=== PATIENT | male | born 1955 | race Caucasian/White ===

== ENCOUNTER 2018-11-18 19:28 | Emergency (ER) | payer BC ==
[2018-11-18 20:14] LABS: #Basophils 0.1 thou/uL (0.0-0.2); #Eosinphils 0.2 thou/uL (0.0-0.7); #Monocytes 0.3 thou/uL (0.11-0.59); #Neutrophils 2.8 thou/uL (1.40-6.50); %Basophils 1.5 % (0.0-1.0); %Eosinophils 2.9 % (0.0-10.0); %Lymphocytes 37.1 % (21.0-51.0); %Monocytes 6.4 % (0.0-10.0); %Neutrophils 52.1 % (42.0-75.0); Hemoglobin 12.5 g/dL (14.0-18.0); Mean Corpuscular HGB CONC 32.2 g/dL (32.0-36.0); Mean Corpuscular Hemoglobin 30.7 pg (27.0-31.0); Mean Corpuscular Volume 95.2 fL (78.0-98.0); Mean Platelet Volume 9.3 fL (7.4-10.4); Platelet Count 126 thou/uL (130-400); RBC Distribution Width 11.9 % (11.5-14.5); Red Blood Cell (RBC) Count 4.07 mill/uL (4.70-6.10); White Blood Cell (WBC) Count 5.3 thou/uL (4.8-10.8)
[2018-11-18 20:33] LABS: ALT (SGPT) 36 U/L (8-55); AST (SGOT) 31 U/L (5-34); Albumin 4.5 g/dL (3.4-4.8); Alkaline Phosphatase 76 U/L (40-150); Anion Gap 15 mmol/L (10-20); BUN (Urea Nitrogen) 15 mg/dL (8.4-25.7); Bilirubin, Total 0.6 mg/dL (0.2-1.2); CK (CPK) 193 U/L (30-200); Calc. Creatinine Clearance 0 mL/min (70-130); Calcium 9.2 mg/dL (7.8-10.44); Carbon Dioxide 24 mmol/L (23-31); Chloride 107 mmol/L (98-107); Estimated GFR-MDRD Greater than 90; Globulin 2.9 g/dL (2.4-3.5); Glucose 90 mg/dL (80-115); Potassium 3.8 mmol/L (3.5-5.1); Protein, Total 7.4 g/dL (5.8-8.1); Sodium 142 mmol/L (136-145)
== END 2018-11-18 21:07 | disposition home or self-care (01) ==
LOC: SCSER 19:28
DX: R55 Syncope and collapse (principal)
CPT/HCPCS: 80053; 82550; 84484; 85025; 93005; 96360

== ENCOUNTER 2018-12-19 12:14 | Outpatient (CLI) | payer BC | END 2018-12-19 12:15 | disposition home or self-care (01) | PROVIDERS: ATTEND Family Medicine | DX: I10 Essential (primary) hypertension (principal); R00.1 Bradycardia, unspecified; R55 Syncope and collapse | CPT/HCPCS: 93225; 93226 ==

== ENCOUNTER 2018-12-21 13:06 | Outpatient (CLI) | payer BC | END 2018-12-21 13:07 | disposition home or self-care (01) | LOC: ULT 13:06 | PROVIDERS: ATTEND Family Medicine | DX: R00.1 Bradycardia, unspecified (principal); I10 Essential (primary) hypertension; R55 Syncope and collapse; I08.1 Rheumatic disorders of both mitral and tricuspid valves | CPT/HCPCS: 93306 ==

== ENCOUNTER 2020-08-28 14:02 | Outpatient (CLI) | payer BC ==
--- NOTE | 2020-08-28 19:52 | ULT ---
SCROTAL ULTRASOUND: 08/28/20 INDICATION: History of left sided testicular pain. TECHNIQUE: Randle scale, color flow with spectral Doppler images were obtained in the scrotum FINDINGS: The right testicle measures 3.6 x 4.7 x 2.5 cm. No intratesticular mass or torsion is evident. Left testicle measures 3.3 x 4.9 x 3.0 cm. No intratesticular mass or torsion is demonstrated. There is a small epididymal cyst seen within the left epididymal head measuring 5 mm. No hydrocele is evide nt. IMPRESSION: No intratesticular mass or torsion demonstrated. POS: BH
== END 2020-08-28 14:03 | disposition home or self-care (01) ==
LOC: SCSULT 14:02
PROVIDERS: ATTEND Urology
DX: N50.812 Left testicular pain (principal)
CPT/HCPCS: 76870; 93976